=== PATIENT | male | born 1960 | race American Indian/Alaskan Native ===

== ENCOUNTER 2018-01-24 06:18 | Observation (INO) | payer MEDICARE ==
[2018-01-19 11:14] LABS: Basophils % (Auto) 0.8 % (0.0-1.8); Eosinophils # (Auto) 0.1 K/mm3 (0.0-0.4); Eosinophils % (Auto) 1.4 % (0.0-4.3); Hemoglobin 15.9 gm/dl (11.8-15.2); Lymphocytes # (Auto) 1.1 K/mm3 (1.2-5.4); Lymphocytes % (Auto) 18.3 % (13.4-35.0); Mean Corpuscular HGB Conc 33 % (32-34); Mean Corpuscular Hemoglobin 29 pg (28-32); Mean Corpuscular Volume 88 fl (84-94); Monocytes # (Auto) 0.8 K/mm3 (0.0-0.8); Monocytes % (Auto) 13.6 % (0.0-7.3); Platelet Count 117 K/mm3 (140-440); Red Blood Count 5.43 M/mm3 (3.65-5.03); Red Cell Distribution Width 15.5 % (13.2-15.2)
[2018-01-19 11:24] LABS: INR 1.05 (0.87-1.13)
[2018-01-19 11:25] LABS: Partial Thromboplastin Time 25.6 Sec. (24.2-36.6)
[2018-01-19 11:28] LABS: Calcium 10.3 mg/dL (8.4-10.2)
--- NOTE | 2018-01-19 11:56 | Anesthesia Consultation ---
Anesthesia Consult and Med Hx Date of service: 01/24/18 (PENDING ANESTHESIA CLEARANCE) - Airway Anesthetic Teeth Evaluation: Good ROM Head & Neck: Adequate Mental/Hyoid Distance: Adequate Mallampati Class: Class II Intubation Access Assessment: Probably Good - Pulmonary Exam CTA: No (distant diffusely) - Cardiac Exam Cardiac Exam: RRR Anesthetic Concerns: + murmur - Pre-Operative Health Status ASA Pre-Surgery Classification: ASA3 Proposed Anesthetic Plan: General - Pre-Anesthesia Comment Pre-Anesthesia Comments: Patient with dyspnea on exertion; can not ambulate one block without shortness of breath; no pedal edema on exam; can not lay supine without shortness of breath; requires nocturnal O2 (3L); pt. also with hx of CHF , HTN, type 1 DM, gout, s/p renal tx 2012 on chronic steroids and cellcept; and PVD and GERD. Pt. also endorses occassional angina he reports at rest. - Pulmonary Hx Smoking: Yes (STOPPED X 27 YRS) SOB: Yes (SOB) COPD: Yes (PT STATES WAS DX AT [facility], BUT DENIES HAVING IT) Hx Pneumonia: Yes (nine times) Hx Sleep Apnea: Yes (DX SLEEP APNEA WITH CPAP AND O2 AT NIGHT) - Cardiovascular System Hx Hypertension: Yes (1994) Hx Angina: Yes Hx Peripheral Vascular Disease: Yes (ROSSY LEGS , PAIN AT ALL TIMES) - Central Nervous System Hx Psychiatric Problems: No - Gastrointestinal Hx Gastroesophageal Reflux Disease: Yes - Endocrine Hx Renal Disease: Yes Hx End Stage Renal Disease: Yes (RESOLVED AFTER KIDNEY TRANSPLANT 2012) Hx Insulin Dependent Diabetes: Yes - Hematic Hx Anemia: Yes (NOT RECENT) - Other Systems Hx Cancer: No (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 Patient expressed understanding of this along with understanding of the high risk of anesthesia given his co-morbidities.
[~2018-01-24 06:18] MED LIST: GARAMYCIN/NS 80 MG/100 ML 100 ML IV SCH; VANCOMYCIN 2,000 MG in NACL 0.9% 500 ML 500 ML IV SCH; VANCOMYCIN/NS 1 GM/250 ML 1 GM/250 ML BAG IV SCH
[2018-01-24] MEDS: NACL 0.9% 1000 ML 1,000 ML IV SCH (06:45)
[2018-01-24] MEDS ORDERED: VANCOMYCIN/NS 1 GM/250 ML 1 GM/250 ML BAG IV ONE (07:00)
[2018-01-24] MEDS ORDERED: VANCOMYCIN/NS 1 GM/250 ML 1 GM/250 ML BAG IV SCH (07:00)
[2018-01-24] MEDS ORDERED: NACL P/F VIAL (10 ML) 0 ML ONE (07:21)
[2018-01-24] MEDS ORDERED: MARCAINE 0.5% INFILTRATI ONE ×2 (07:21→10:19)
[2018-01-24] MEDS ORDERED: NEOSPORIN GU IR ONE (07:21)
[2018-01-24] MEDS ORDERED: NACL ONE (07:43)
[2018-01-24] MEDS ORDERED: SUBLIMAZE ONE ×2 (08:23→08:41)
[2018-01-24] MEDS ORDERED: DIPRIVAN 10 MG/ML IV ONE (08:23)
[2018-01-24] MEDS ORDERED: XYLOCAINE CARDIAC IV ONE (08:23)
[2018-01-24] MEDS ORDERED: ROBINUL ONE (10:11)
[2018-01-24] MEDS ORDERED: ZOFRAN ONE (10:11)
[2018-01-24] MEDS ORDERED: NACL INFILTRATI ONE (10:19)
[2018-01-24] MEDS ORDERED: NACL 0.9% IR ONE (10:23)
--- NOTE | 2018-01-24 10:30 | Short Stay Summary ---
Short Stay Documentation Date of service: 01/24/18 - History H&P: obtained from office - Allergies and Medications Current Medications: Allergies No Known Allergies Allergy (Verified 01/14/18 12:06) Home Medications Medication Instructions Recorded Confirmed Last Taken Type ISOSORBIDE MONOnitrate [Imdur ER] 30 mg PO QHS tablet 01/07/16 01/14/18 Rx Multivitamin Tab [Multiple Vitamin 1 each PO QDAY tablet 01/07/16 01/14/1802/01 Rx TAB (Theragran)] predniSONE [Deltasone] 5 mg PO QDAY tablet 01/07/16 01/14/18 01/23/18 Rx AtorvaSTATin [Lipitor] 20 mg PO QHS 01/14/18 01/14/18 01/23/18 History Carvedilol [Coreg] 6.25 mg PO BID 01/14/18 01/14/18 01/24/18 07:00 History Cholecalciferol Vit D3 [Vitamin D3] 50,000 unit PO QWEEK 01/14/18 01/14/1801/23 History Insulin Aspart [Novolog] 15 units SQ QAM 01/14/18 01/14/18 01/23/18 History Insulin Aspart [Novolog] 20 units SQ BID 01/14/18 01/14/18 01/23/18 History Insulin Glargine [Lantus VIAL] 44 units SUB-Q QHS 01/14/18 01/14/18 01/23/18 History Mycophenolate [Cellcept] 500 mg PO BID 01/14/18 01/14/18 01/24/18 07:00 History Omeprazole Magnesium [PriLOSEC Otc] 20 mg PO QDAY 01/14/18 01/14/18 01/24/18 07: 00 History hydrALAZINE [Apresoline TAB] 100 mg PO BID 01/14/18 01/14/18 01/23/18 History metOLazone [Zaroxolyn] 2.5 mg PO 3XW 01/24/18 01/24/18 01/21/18 History Active Medications Gentamicin Sulfate/Sodium Chloride (Garamycin/Ns 80 Mg/100 Ml) 100 mls @ 200 mls/hr IV PREOP SHAUN Vancomycin HCl 2,000 mg/ (Sodium Chloride) 540 mls @ 250 mls/hr IV PREOP SHAUN Stop: 01/24/18 23:59 Sodium Chloride (Nacl 0.9% 1000 Ml) 1,000 mls @ 42 mls/hr IV DIRECT SHAUN Last Admin: 01/24/18 06:45 Dose: 42 mls/hr - Brief post op/procedure progress note Date of procedure: 01/24/18 Pre-op diagnosis: impotence Post-op diagnosis: same Procedure: ipp , pharmacologic injection of corporal body (LGX 22CM + 4 CM RTE) Anesthesia: GETA Surgeon: DEVYN WOODSON Estimated blood loss: 50-100ml Pathology: none Condition: stable - Hospital course Hospital course: PT HAS BACTRIM,ULTRAM,NORCO AT HOME POST OP INFO ON CHART LEE OUT - VOIDED WRAP REMOVED HOME - Disposition Condition at discharge: Stable Short Stay Discharge Plan Follow up with: YURY KHAN [Other] - 7 Days
[2018-01-24] MEDS ORDERED: ZOFRAN IV PRN (10:35)
[2018-01-24] MEDS ORDERED: NORCO 5/325 PO PRN (10:35)
[2018-01-24] MEDS ORDERED: NARCAN 0.4 MG/1 ML IV PRN (10:35)
[2018-01-24] MEDS ORDERED: D50W (25GM) Syringe IV PRN (10:35)
[2018-01-24] MEDS ORDERED: TYLENOL PO PRN (10:35)
[2018-01-24] MEDS ORDERED: DILAUDID IV PRN (10:50)
[2018-01-24] MEDS ORDERED: APRESOLINE ONE (10:56)
[2018-01-24] MEDS ORDERED: NORMODYNE IV ONE (11:09)
--- NOTE | 2018-01-24 12:08 | Operative Report ---
PREOPERATIVE DIAGNOSIS: Erectile dysfunction. POSTOPERATIVE DIAGNOSIS: Erectile dysfunction. PROCEDURE: Insertion of inflatable penile prosthesis (LGX 18 cm with 4 cm rear tip extenders), pharmacologic injection of corporal bodies. SURGEON: Danilo Franks M.D. ANESTHESIA: General. PHYSICAL THERAPIST TECHNICIAN: Adriane Kaur. ESTIMATED BLOOD LOSS: Minimal. FLUIDS: Crystalloid. COMPLICATIONS: No complications. INDICATIONS: This patient is a 57-year-old gentleman referred by Dr. Lali Prado for evaluation of erectile dysfunction. The patient has a history of diabetes, congestive heart failure, hypertension, and renal transplant. His delivery driver/supervisor is Dr. Naranjo at [facility], his call number is . His corporate treasury analyst is Dr. Jo, . Long discussion with the patient and his regarding the risk, benefits, and complications. They agreed to proceed. He was cleared by his delivery driver/supervisor as well as his corporate treasury analyst to proceed. DESCRIPTION OF PROCEDURE: The patient was taken to the operative suite, placed in a supine position. After adequate general anesthesia, he was prepped and draped in a sterile fashion. Hurtado catheter was placed on the operative field. Due to his increased abdominal girth, but felt it was prudent to place his reservoir in the subcutaneous space of his abdomen. The retropubic space was not violated. Transscrotal incision was made with a Bovie. Sharp dissection was taken down to the corporal bodies. A metal Cunningham retractor was used for exposure. A 0.25% Marcaine was injected, 30 mL diluted was injected into the penis to assist with postop pain as well as no curvature or plaque could be appreciated. Corporotomies were made. A gentle dilation and measurements revealed a total of 22 cm and therefore an 18 cm LGX device was prepped and 100 mL Conceal reservoir. The Conceal reservoir was placed in the abdominal subcutaneous space. A pursestring suture was used to secure it in the space. It was inflated with 100 mL of saline, it could not be palpated due to his large abdominal girth. An 18 cm LGX device was prepped and draped and placed in the corporal bodies with the aid of a Corky needle. Corporotomies were closed with 2-0 Vicryl in a running fashion. Inflation of the device revealed an excellent appearance. The pump and the reservoir were connected with the quick click connection system. Insufflation of the device revealed excellent appearance. Copious irrigation was performed. Adequate hemostasis achieved. The pump was placed in the dependent portion of the scrotum, 2-0 Vicryl was used to close the dartos layer securing it in the dependent portion of the scrotum. The skin was closed with 2-0 Monocryl in interrupted fashion. Mummy wrap and Hurtado catheter was left indwelling. He was extubated and taken to recovery room. JOB# [id number] LUIS/ALEK
--- NOTE | 2018-01-24 12:45 | Consultation ---
History of Present Illness - Reason for Consult Consult date: 01/24/18 Requesting physician: DEVYN WOODSON - History of Present Illness 57 YO Male with HTN, DM, COPD, CKD S/P Renal Transplant, HESHAM, Obesity, Chronic Respiratory Failure on 3L Home Oxygen. Pt admitted by Urology service for elective procedure. Consult placed for medical management. Pt seen and evaluated in his room. Pt denies fever, chills, CP, Palpitatations, NVD, Trauma , productive cough, or recent ill contacts. No reported nursing events. Past History Past Medical History: COPD, diabetes, hypertension Past Surgical History: Other (Left AVF, Renal Transplant) Social history: , lives with family. denies: smoking, alcohol abuse, prescription drug abuse Family history: diabetes, hypertension Medications and Allergies Allergies Allergy/AdvReac Type Severity Reaction Status Date / Time No Known Allergies Allergy Verified 01/14/18 12:06 Home Medications Medication Instructions Recorded Confirmed Last Taken Type ISOSORBIDE MONOnitrate [Imdur ER] 30 mg PO QHS tablet 01/07/16 01/14/18 Rx Multivitamin Tab [Multiple Vitamin 1 each PO QDAY tablet 01/07/16 01/14/1802/01 Rx TAB (Theragran)] predniSONE [Deltasone] 5 mg PO QDAY tablet 01/07/16 01/14/18 01/23/18 Rx AtorvaSTATin [Lipitor] 20 mg PO QHS 01/14/18 01/14/18 01/23/18 History Carvedilol [Coreg] 6.25 mg PO BID 01/14/18 01/14/18 01/24/18 07:00 History Cholecalciferol Vit D3 [Vitamin D3] 50,000 unit PO QWEEK 01/14/18 01/14/1801/23 History Insulin Aspart [Novolog] 15 units SQ QAM 01/14/18 01/14/18 01/23/18 History Insulin Aspart [Novolog] 20 units SQ BID 01/14/18 01/14/18 01/23/18 History Insulin Glargine [Lantus VIAL] 44 units SUB-Q QHS 01/14/18 01/14/18 01/23/18 History Mycophenolate [Cellcept] 500 mg PO BID 01/14/18 01/14/18 01/24/18 07:00 History Omeprazole Magnesium [PriLOSEC Otc] 20 mg PO QDAY 01/14/18 01/14/18 01/24/18 07: 00 History hydrALAZINE [Apresoline TAB] 100 mg PO BID 01/14/18 01/14/18 01/23/18 History metOLazone [Zaroxolyn] 2.5 mg PO 3XW 01/24/18 01/24/18 01/21/18 History Active Meds: Active Medications Acetaminophen (Tylenol) 650 mg PO Q4H PRN PRN Reason: Pain MILD(1-3)/Fever >100.5/HUSSEIN Acetaminophen/Hydrocodone Bitart ([place] 5/325) 2 each PO Q6H PRN PRN Reason: Pain, Moderate (4-6) Atorvastatin Calcium (Lipitor) 20 mg PO QHS [facility] Carvedilol (Coreg) 6.25 mg PO BID [facility] Cholecalciferol (Vitamin D3) 50,000 unit PO QWEEK [facility] Dextrose (D50w (25gm) Syringe) 50 ml IV PRN PRN PRN Reason: Hypoglycemia Hydralazine HCl (Apresoline) 100 mg PO BID [facility] Hydromorphone HCl (Dilaudid) 2 mg IV Q4H PRN PRN Reason: Pain , Severe (7-10) Stop: 01/25/18 10:49 Gentamicin Sulfate/Sodium Chloride (Garamycin/Ns 80 Mg/100 Ml) 100 mls @ 200 mls/hr IV PREOP SHAUN Vancomycin HCl 2,000 mg/ (Sodium Chloride) 540 mls @ 250 mls/hr IV PREOP SHAUN Stop: 01/24/18 23:59 Sodium Chloride (Nacl 0.9% 1000 Ml) 1,000 mls @ 42 mls/hr IV DIRECT SHAUN Last Admin: 01/24/18 06:45 Dose: 42 mls/hr Cefazolin Sodium (Ancef/Ns 1 Gm/50 Ml) 1 gm in 50 mls @ 100 mls/hr IV Q8H [facility]; Protocol Stop: 01/25/18 02:29 Insulin Glargine (Lantus) 44 units SUB-Q QHS [facility] Insulin Human Lispro (Humalog) 15 unit SUB-Q QAM [facility] Insulin Human Lispro (Humalog) 20 unit SUB-Q BID [facility] Isosorbide Mononitrate (Imdur) 30 mg PO QHS [facility] Metolazone (Zaroxolyn) 2.5 mg PO 3XW [facility] Multivitamins (Theragran Tab) 1 each PO QDAY [facility] Mycophenolate Mofetil (Cellcept) 500 mg PO BID [facility] Naloxone HCl (Narcan 0.4 Mg/1 Ml) 0.1 mg IV Q2MIN PRN PRN Reason: Res Rate </= 8 or 02 SAT < 92% Ondansetron HCl (Zofran) 4 mg IV Q8H PRN PRN Reason: N/V unrelieved by Reglan Pantoprazole Sodium (Protonix) 20 mg PO QDAY [facility] Prednisone (Deltasone) 5 mg PO QDAY [facility] Review of Systems Constitutional: no weight loss, no weight gain, no fever, no chills Ears, nose, mouth and throat: no ear pain, no ear discharge, no tinnitis, no decreased hearing, no nose pain, no nasal congestion Cardiovascular: no chest pain, no orthopnea, no palpitations, no rapid/ irregular heart beat, no edema, no syncope Respiratory: no cough, no cough with sputum, no excessive sputum, no hemoptysis , no shortness of breath Gastrointestinal: no nausea, no vomiting, no diarrhea, no constipation Genitourinary Male: no hematuria, no flank pain, no discharge, no urinary frequency, no urinary hesitancy Rectal: no pain, no incontinence, no bleeding, no itching Musculoskeletal: no neck stiffness, no neck pain, no shooting arm pain, no arm numbness/tingling, no low back pain Integumentary: no rash, no pruritis, no redness, no sores, no wounds Neurological: no transient paralysis, no paralysis, no weakness, no parathesias , no numbness, no tingling Psychiatric: no anxiety, no memory loss, no change in sleep habits, no sleep disturbances, no insomnia, no hypersomnia, no change in appetite Endocrine: no cold intolerance, no heat intolerance, no polyphagia, no excessive thirst, no polydipsia, no polyuria Hematologic/Lymphatic: no easy bruising, no easy bleeding, no lymphadenopathy, no lymphedema Allergic/Immunologic: no urticaria, no allergic rhinitis, no wheezing, no persistent infections, no anaphylaxis, no angioedema Exam - Constitutional Vitals: Temp Pulse Resp BP Pulse Ox 98.5 F 69 12 146/63 9 L 01/24/18 11:45 01/24/18 12:15 01/24/18 12:15 01/24/18 12:15 01/24/18 12:15 General appearance: Present: no acute distress, obese - EENT Eyes: Present: PERRL ENT: hearing intact, clear oral mucosa - Neck Neck: Present: supple, normal ROM - Respiratory Respiratory effort: normal Respiratory: bilateral: CTA - Cardiovascular Heart Sounds: Present: S1 & S2. Absent: rub, click - Extremities Extremities: pulses symmetrical, No edema Peripheral Pulses: within normal limits - Abdominal General gastrointestinal: Present: soft, non-tender, non-distended, normal bowel sounds Male genitourinary: Present: normal - Integumentary Integumentary: Present: clear, warm, dry - Musculoskeletal Musculoskeletal: gait normal, strength equal bilaterally - Psychiatric Psychiatric: appropriate mood/affect, intact judgment & insight - Neurologic Neurologic: CNII-XII intact, moves all extremities Results - Labs CBC & Chem 7: 01/19/18 10:50 01/19/18 10:50 Labs: Abnormal lab results 01/24/18 01/24/18 Range/Units 06:47 10:49 POC Glucose 214 H 218 H (70-105) Assessment and Plan - Patient Problems (1) HTN (hypertension) Current Visit: Yes Status: Acute Qualifiers: Hypertension type: essential hypertension Qualified Code(s): I10 - Essential (primary) hypertension Plan to address problem: Monitor BP q shift, resume home medication, (2) Diabetes mellitus Current Visit: No Status: Acute Plan to address problem: ADA diet, insulin, accu check, resume home insulin therapy.
[2018-01-24] MEDS ORDERED: VITAMIN D3 PO SCH (13:00)
[2018-01-24] MEDS ORDERED: VITAMIN D2 PO SCH (15:00)
[2018-01-24] MEDS: ANCEF/NS 1 GM/50 ML 1 GM/50 ML BAG IV SCH ×3 (16:55→23:08)
[2018-01-24] MEDS: NORCO 5/325 PO PRN (17:26)
--- NOTE | 2018-01-24 18:05 | Consultation ---
History of Present Illness Consult date: 01/24/18 Consult reason: post op evaluation History of present illness: The patient is a 57-year-old man admitted to the hospital following penile implant surgery. He has a history of heart failure with preserved ejection fraction, followed at [facility]. Following surgery today, he was noted on telemetry with isolated PVCs. The rhythm was a sinus rhythm, blood pressure was normal at 130 systolic. The patient was somewhat drowsy from anesthesia, but comfortable, denied chest pain or shortness of breath or palpitations. Twelve-lead ECG is pending but the ST segments on the ekg monitor was isoelectric on multiple leads. Past History Past Medical History: heart failure (with preserved ejection fraction), hypertension Medications and Allergies Allergies Allergy/AdvReac Type Severity Reaction Status Date / Time No Known Allergies Allergy Verified 01/14/18 12:06 Home Medications Medication Instructions Recorded Confirmed Last Taken Type ISOSORBIDE MONOnitrate [Imdur ER] 30 mg PO QHS tablet 01/07/16 01/14/18 Rx Multivitamin Tab [Multiple Vitamin 1 each PO QDAY tablet 01/07/16 01/14/1802/01 Rx TAB (Theragran)] predniSONE [Deltasone] 5 mg PO QDAY tablet 01/07/16 01/14/18 01/23/18 Rx AtorvaSTATin [Lipitor] 20 mg PO QHS 01/14/18 01/14/18 01/23/18 History Carvedilol [Coreg] 6.25 mg PO BID 01/14/18 01/14/18 01/24/18 07:00 History Cholecalciferol Vit D3 [Vitamin D3] 50,000 unit PO QWEEK 01/14/18 01/14/1801/23 History Insulin Aspart [Novolog] 15 units SQ QAM 01/14/18 01/14/18 01/23/18 History Insulin Aspart [Novolog] 20 units SQ BID 01/14/18 01/14/18 01/23/18 History Insulin Glargine [Lantus VIAL] 44 units SUB-Q QHS 01/14/18 01/14/18 01/23/18 History Mycophenolate [Cellcept] 500 mg PO BID 01/14/18 01/14/18 01/24/18 07:00 History Omeprazole Magnesium [PriLOSEC Otc] 20 mg PO QDAY 01/14/18 01/14/18 01/24/18 07: 00 History hydrALAZINE [Apresoline TAB] 100 mg PO BID 01/14/18 01/14/18 01/23/18 History metOLazone [Zaroxolyn] 2.5 mg PO 3XW 01/24/18 01/24/18 01/21/18 History Active Meds: Active Medications Acetaminophen (Tylenol) 650 mg PO Q4H PRN PRN Reason: Pain MILD(1-3)/Fever >100.5/HUSSEIN Acetaminophen/Hydrocodone Bitart ([place] 5/325) 2 each PO Q6H PRN PRN Reason: Pain, Moderate (4-6) Last Admin: 01/24/18 17:26 Dose: 2 each Atorvastatin Calcium (Lipitor) 20 mg PO QHS [facility] Carvedilol (Coreg) 6.25 mg PO BID [facility] Dextrose (D50w (25gm) Syringe) 50 ml IV PRN PRN PRN Reason: Hypoglycemia Ergocalciferol (Vitamin D2) 50,000 unit PO Mo SHAUN Last Admin: 01/24/18 16:54 Dose: 50,000 unit Hydralazine HCl (Apresoline) 100 mg PO BID [facility] Hydromorphone HCl (Dilaudid) 2 mg IV Q4H PRN PRN Reason: Pain , Severe (7-10) Stop: 01/25/18 10:49 Gentamicin Sulfate/Sodium Chloride (Garamycin/Ns 80 Mg/100 Ml) 100 mls @ 200 mls/hr IV PREOP SHAUN Vancomycin HCl 2,000 mg/ (Sodium Chloride) 540 mls @ 250 mls/hr IV PREOP SHAUN Stop: 01/24/18 23:59 Sodium Chloride (Nacl 0.9% 1000 Ml) 1,000 mls @ 42 mls/hr IV DIRECT SHAUN Last Admin: 01/24/18 06:45 Dose: 42 mls/hr Cefazolin Sodium (Ancef/Ns 1 Gm/50 Ml) 1 gm in 50 mls @ 100 mls/hr IV Q8H [facility]; Protocol Stop: 01/25/18 02:29 Last Admin: 01/24/18 16:55 Dose: 100 mls/hr Insulin Glargine (Lantus) 44 units SUB-Q QHS [facility] Insulin Human Lispro (Humalog) 15 unit SUB-Q QAM [facility] Insulin Human Lispro (Humalog) 20 unit SUB-Q BID [facility] Isosorbide Mononitrate (Imdur) 30 mg PO QHS [facility] Metolazone (Zaroxolyn) 2.5 mg PO MoWeFr [facility] Multivitamins (Theragran Tab) 1 each PO QDAY [facility] Mycophenolate Mofetil (Cellcept) 500 mg PO BID [facility] Naloxone HCl (Narcan 0.4 Mg/1 Ml) 0.1 mg IV Q2MIN PRN PRN Reason: Res Rate </= 8 or 02 SAT < 92% Ondansetron HCl (Zofran) 4 mg IV Q8H PRN PRN Reason: N/V unrelieved by Reglan Pantoprazole Sodium (Protonix) 20 mg PO QDAY [facility] Prednisone (Deltasone) 5 mg PO QDAY [facility] Review of Systems ROS unobtainable: due to mental status Physical Examination Vital Signs Temp Pulse Resp BP 99.3 F 84 24 130/70 01/19/18 10:45 01/19/18 10:45 01/19/18 10:45 01/19/18 10:45 General appearance: no acute distress HEENT: Positive: PERRL Neck: Positive: neck supple Cardiac: Positive: Reg Rate and Rhythm Lungs: Positive: Decreased Breath Sounds Neuro: Positive: Grossly Intact Abdomen: Positive: Soft Male genitourinary: Positive: deferred Skin: Positive: Clear Extremities: Absent: edema Results 01/19/18 10:50 01/19/18 10:50 Assessment and Plan - Patient Problems (1) Postoperative cardiac complication Current Visit: Yes Status: Acute Plan to address problem: Postoperative cardiac status is stable. Patient had asymptomatic, isolated PVCs on the monitor following surgery which now resolved. We will review a postoperative 12-lead EKG, and manage conservatively.
[2018-01-24] MEDS: COREG PO SCH (21:42)
[2018-01-24] MEDS: APRESOLINE PO SCH (21:42)
[2018-01-24] MEDS: CELLCEPT PO SCH (21:45)
[2018-01-24] MEDS ORDERED: IMDUR PO SCH (22:00)
[2018-01-24] MEDS ORDERED: NON-FORMULARY (Insulin Aspart 20 UNITS) SQ SCH (22:00)
[2018-01-24] MEDS ORDERED: LANTUS SUB-Q SCH (22:00)
[2018-01-24] MEDS: HumaLOG SUB-Q SCH (22:01)
[2018-01-25] MEDS: ANCEF/NS 1 GM/50 ML 1 GM/50 ML BAG IV SCH (03:51)
[2018-01-25 04:40] LABS: Basophils # (Auto) 0.1 K/mm3 (0.0-0.1); Basophils % (Auto) 0.6 % (0.0-1.8); Eosinophils % (Auto) 0.2 % (0.0-4.3); Hematocrit 45.4 % (35.5-45.6); Hemoglobin 14.9 gm/dl (11.8-15.2); Lymphocytes # (Auto) 0.7 K/mm3 (1.2-5.4); Lymphocytes % (Auto) 6.3 % (13.4-35.0); Mean Corpuscular HGB Conc 33 % (32-34); Mean Corpuscular Hemoglobin 29 pg (28-32); Mean Corpuscular Volume 88 fl (84-94); Monocytes # (Auto) 1.2 K/mm3 (0.0-0.8); Monocytes % (Auto) 10.8 % (0.0-7.3); Platelet Count 117 K/mm3 (140-440); Red Blood Count 5.15 M/mm3 (3.65-5.03); Red Cell Distribution Width 15.1 % (13.2-15.2)
[2018-01-25] MEDS: NACL 0.9% 1000 ML 1,000 ML IV SCH (04:43)
[2018-01-25 04:55] LABS: Calcium 9.2 mg/dL (8.4-10.2)
[2018-01-25] MEDS: NORCO 5/325 PO PRN ×2 (08:29→15:14)
[2018-01-25] MEDS: PROTONIX PO SCH ×2 (08:34→10:26)
[2018-01-25] MEDS ORDERED: NON-FORMULARY (Omeprazole Magnesium [Prilosec Otc] 20 MG) PO SCH (10:00)
[2018-01-25] MEDS ORDERED: THERAGRAN Tab PO SCH (10:00)
[2018-01-25] MEDS ORDERED: INSULIN ASPART 15 UNIT SQ SCH (10:00)
[2018-01-25] MEDS ORDERED: DELTASONE PO SCH (10:00)
[2018-01-25] MEDS ORDERED: HumaLOG SUB-Q SCH (10:00)
--- NOTE | 2018-01-25 10:54 | Progress Note ---
Assessment and Plan Assessment and plan: Impotence s/p penile implant. Managed by uriology. Going home today. Hypertension, BP borderline. Diabetes mellitus type 2. Fingerstick Qac and hs CKD. Follows with Nephrology s/p Renal transplant. Follows Nephrology and Transplant Physician. He tells me baseline Cr 2.5, same here Full code Stable to dc home today. I asked him to follow with Nephrology/Transplant Physician in 1 week. Hospitalist Physical - Physical exam Narrative exam: GEN:Not in acute distress, lying in bed,morbildly obese HEENT: Normocephalic, atraumatic, Neck: supple, No JVD Lungs: Clear to auscultaion bilaterally, no crackles Heart:S1 and S2 reg, no murmurs, rubs or gallop Abd:soft, non-tender, non-distended, Normal bowel sounds Ext: No edema, clubbing or cyanosis Neuro: Awake, alert, oriented X 3, Moves all extremities - Constitutional Vitals: Temp Pulse Resp BP Pulse Ox 98.8 F 88 13 142/47 97 01/25/18 04:45 01/25/18 09:52 01/25/18 09:52 01/25/18 04:45 01/25/18 09:52 General appearance: Present: no acute distress, obese Results - Labs CBC & Chem 7: 01/25/18 04:09 01/25/18 04:09 Labs: Laboratory Last Values WBC 11.1 K/mm3 (4.5-11.0) H 01/25/18 04:09 RBC 5.15 M/mm3 (3.65-5.03) H 01/25/18 04:09 Hgb 14.9 gm/dl (11.8-15.2) 01/25/18 04:09 Hct 45.4 % (35.5-45.6) 01/25/18 04:09 MCV 88 fl (84-94) 01/25/18 04:09 MCH 29 pg (28-32) 01/25/18 04:09 MCHC 33 % (32-34) 01/25/18 04:09 RDW 15.1 % (13.2-15.2) 01/25/18 04:09 Plt Count 117 K/mm3 (140-440) L 01/25/18 04:09 Lymph % (Auto) 6.3 % (13.4-35.0) L 01/25/18 04:09 [place] % (Auto) 10.8 % (0.0-7.3) H 01/25/18 04:09 Eos % (Auto) 0.2 % (0.0-4.3) 01/25/18 04:09 Baso % (Auto) 0.6 % (0.0-1.8) 01/25/18 04:09 Lymph # 0.7 K/mm3 (1.2-5.4) L 01/25/18 04:09 [place] # 1.2 K/mm3 (0.0-0.8) H 01/25/18 04:09 Eos # 0.0 K/mm3 (0.0-0.4) 01/25/18 04:09 Baso # 0.1 K/mm3 (0.0-0.1) 01/25/18 04:09 Seg Neutrophils % 82.1 % (40.0-70.0) H 01/25/18 04:09 Seg Neutrophils # 9.1 K/mm3 (1.8-7.7) H 01/25/18 04:09 PT 14.2 Sec. (12.2-14.9) 01/19/18 10:50 INR 1.05 (0.87-1.13) 01/19/18 10:50 APTT 25.6 Sec. (24.2-36.6) 01/19/18 10:50 Sodium 140 mmol/L (137-145) 01/25/18 04:09 Potassium 3.0 mmol/L (3.6-5.0) L 01/25/18 04:09 Chloride 98.2 mmol/L (98-107) 01/25/18 04:09 Carbon Dioxide 30 mmol/L (22-30) 01/25/18 04:09 Anion Gap 15 mmol/L 01/25/18 04:09 BUN 56 mg/dL (9-20) H 01/25/18 04:09 Creatinine 2.5 mg/dL (0.8-1.5) H 01/25/18 04:09 Estimated GFR 32 ml/min 01/25/18 04:09 BUN/Creatinine Ratio 22 % 01/25/18 04:09 Glucose 179 mg/dL (75-100) H 01/25/18 04:09 POC Glucose 157 (70-105) H 01/25/18 07:59 Calcium 9.2 mg/dL (8.4-10.2) 01/25/18 04:09 Total Bilirubin 0.90 mg/dL (0.1-1.2) 01/19/18 10:50 AST 28 units/L (5-40) 01/19/18 10:50 ALT 23 units/L (7-56) 01/19/18 10:50 Alkaline Phosphatase 63 units/L (35-129) 01/19/18 10:50 Total Protein 6.5 g/dL (6.3-8.2) 01/19/18 10:50 Albumin 4.0 g/dL (3.9-5) 01/19/18 10:50 Albumin/Globulin Ratio 1.6 % 01/19/18 10:50
[2018-01-25] MEDS: HumaLOG SUB-Q SCH (11:25)
--- NOTE | 2018-01-25 11:35 | Progress Note ---
Assessment and Plan Erectile dysfunction s/p penile implant Postoperative cardiac assessment patient had asymptomatic, isolated PVCs on the monitor following surgery Hypertension Diabetes Stable cardiac garcia. Patient advised to follow up with his primary product safety lead at [facility] within 1 week of discharge. Subjective Date of service: 01/25/18 Interval history: Patient has no complaints. Objective Vital Signs Temp Pulse Pulse Resp BP Pulse Ox 01/25/18 09:52 88 13 97 01/25/18 04:45 98.8 F 73 18 142/47 98 01/24/18 23:05 98.7 F 76 18 140/64 97 01/24/18 22:17 99 01/24/18 22:08 98 01/24/18 22:05 76 20 01/24/18 21:43 66 183/69 01/24/18 21:42 66 183/69 01/24/18 19:31 98.6 F 66 18 183/69 100 01/24/18 12:36 68 99 01/24/18 12:35 97.8 F 69 20 151/73 96 01/24/18 12:15 69 12 146/63 9 L 01/24/18 12:00 64 16 137/62 97 01/24/18 11:45 98.5 F 61 15 143/62 98 - Physical Examination General: No Apparent Distress HEENT: Positive: PERRL Neck: Positive: neck supple Cardiac: Positive: Irregularly Regular Lungs: Positive: Decreased Breath Sounds Neuro: Positive: Grossly Intact Extremities: Absent: edema - Labs and Meds CBC 01/25/18 Range/Units 04:09 WBC 11.1 H (4.5-11.0) K/mm3 RBC 5.15 H (3.65-5.03) M/mm3 Hgb 14.9 (11.8-15.2) gm/dl Hct 45.4 (35.5-45.6) % Plt Count 117 L (140-440) K/mm3 Lymph # 0.7 L (1.2-5.4) K/mm3 [place] # 1.2 H (0.0-0.8) K/mm3 Eos # 0.0 (0.0-0.4) K/mm3 Baso # 0.1 (0.0-0.1) K/mm3 Comprehensive Metabolic Panel 01/25/18 Range/Units 04:09 Sodium 140 (137-145) mmol/L Potassium 3.0 L (3.6-5.0) mmol/L Chloride 98.2 (98-107) mmol/L Carbon Dioxide 30 (22-30) mmol/L BUN 56 H (9-20) mg/dL Creatinine 2.5 H (0.8-1.5) mg/dL Glucose 179 H (75-100) mg/dL Calcium 9.2 (8.4-10.2) mg/dL
[2018-01-25] MEDS: APRESOLINE PO SCH (11:45)
[2018-01-25] MEDS: COREG PO SCH (11:45)
[2018-01-25] MEDS: CELLCEPT PO SCH (11:45)
[2018-01-25 11:47] VITALS: BP 156/60
[2018-01-25] MEDS ORDERED: K-DUR PO NR (12:00)
[2018-01-26] MEDS ORDERED: ZAROXOLYN PO SCH (10:00)
== END 2018-01-25 16:00 | disposition home or self-care (01) ==
LOC: OR 06:18 → 3B-SURG 10:36
PROVIDERS: ADMIT Urology; ATTEND Urology
DX: N52.01 Erectile dysfunction due to arterial insufficiency (principal); I11.0 Hypertensive heart disease with heart failure; I50.9 Heart failure, unspecified; J44.9 Chronic obstructive pulmonary disease, unspecified; M10.9 Gout, unspecified; I73.9 Peripheral vascular disease, unspecified; K21.9 Gastro-esophageal reflux disease without esophagitis; I49.3 Ventricular premature depolarization; E66.9 Obesity, unspecified; G47.33 Obstructive sleep apnea (adult) (pediatric); J96.10 Chronic respiratory failure, unspecified whether with hypoxia or hypercapnia; E11.9 Type 2 diabetes mellitus without complications; M19.90 Unspecified osteoarthritis, unspecified site; Z94.0 Kidney transplant status; Z87.891 Personal history of nicotine dependence; Z79.4 Long term (current) use of insulin; Z68.39 Body mass index [BMI] 39.0-39.9, adult; Z99.81 Dependence on supplemental oxygen
CPT/HCPCS: 36415; 54405; 80048; 80053; 82962; 85025; 85610; 85730; 93005; 93010; 96365; 96366; 96367; 96372; 96375; A9270; C1813; G0378; J0360; J0690; J1170; J1580; J2001; J2405; J2704; J3010; J3370; J7030; J7512; J1815; J7517